=== PATIENT | female | born 1955 | race Caucasian/White ===

== ENCOUNTER 2024-12-25 06:25 | Day surgery (SDC) | payer MEDICARE, OTHER, SELFPAY | END 2024-12-25 09:06 | disposition home or self-care (01) | LOC: GI 06:25 | PROVIDERS: ATTENDING PHYSICIAN Internal Medicine Gastroenterology | DX: K64.8 Other hemorrhoids (principal); K57.30 Diverticulosis of large intestine without perforation or abscess without bleeding; K63.5 Polyp of colon; Z86.0100 Personal history of colon polyps, unspecified; Z80.0 Family history of malignant neoplasm of digestive organs | CPT/HCPCS: 45380; 88305 ==